=== PATIENT | female | born 1975 | race Native Hawaiian/Other Pacific Islander ===

== ENCOUNTER 2016-07-11 15:14 | Outpatient (CLI) | payer BC | END 2016-07-11 19:10 | disposition home or self-care (01) | LOC: MAMMO 15:14 | DX: Z12.31 Encounter for screening mammogram for malignant neoplasm of breast (principal) | CPT/HCPCS: G0202-TC ==

== ENCOUNTER 2017-10-02 15:41 | Outpatient (CLI) | payer BC | END 2017-10-02 22:30 | disposition home or self-care (01) | LOC: MAMMO 15:41 | DX: Z12.31 Encounter for screening mammogram for malignant neoplasm of breast (principal) ==